=== PATIENT | female | born 1955 | race Caucasian/White ===

== ENCOUNTER → 2017-06-28 | Outpatient (CLI) | payer OTHER ==
[~2017-06-28] MED LIST: ASPIRIN ADULT L81 M5 PO; METFORMIN PO
[2017-06-28 08:28] LABS: BASOPHIL % 0.5 % (0-2); PLATELET COUNT 224 x10^3mcL (130-400)
[2017-06-28 08:38] LABS: CALCIUM 8.6 mg/dL (8.5-10.1); CARBON DIOXIDE 27.5 mmol/L (21-32); CHLORIDE SERUM 108 mmol/L (98-107); CHOLESTEROL 179 mg/dL (<200); CREATININE SERUM 0.6 mg/dL (0.6-1.0); GFR1 > 60 mL/min; GLUCOSE SERUM 144 mg/dL (74-106); POTASSIUM SERUM 4.1 mmol/L (3.5-5.1); SODIUM SERUM 143 mmol/L (136-145); TRIGLYCERIDES 55 mg/dL (<150)
[2017-06-28 08:42] LABS: CHOLESTEROL/HDL RATIO 2.8; HDL CHOLESTEROL 63 mg/dL (40-60)
[2017-06-28 08:58] LABS: RED CELL DISTRIBUTION WIDTH 14.7 % (11.5-14.5)
[2017-06-28 09:17] LABS: T3 TOTAL 0.93 ng/mL
[2017-06-28 10:13] LABS: FREE T4 1.04 ng/dL (0.76-1.46); FREE THYROXINE INDEX 2.1 ug/dL (1.4-4.5); T4(THYROXINE) 5.9 ug/dL (4.7-13.3)
== END | disposition home or self-care (01) ==
LOC: LB 07:49
PROVIDERS: Internal Medicine
DX: E11.9 Type 2 diabetes mellitus without complications (principal)
CPT/HCPCS: 84439

== ENCOUNTER 2018-04-19 18:45 | Inpatient (IN) | payer OTHER ==
[~2018-04-19] VITALS: Ht 147.3 cm; Wt 66.2 kg
[2018-04-19 20:56] LABS: BASOPHIL % 0.4 % (0-2); PLATELET COUNT 246 x10^3mcL (130-400)
[2018-04-19 20:57] LABS: RED CELL DISTRIBUTION WIDTH 15.2 % (11.5-14.5)
[2018-04-19 21:05] LABS: CALCIUM 8.7 mg/dL (8.5-10.1); CARBON DIOXIDE 24.6 mmol/L (21-32); CHLORIDE SERUM 105 mmol/L (98-107); CREATININE SERUM 0.8 mg/dL (0.6-1.0); GFR1 > 60 mL/min; GLUCOSE SERUM 195 mg/dL (74-106); POTASSIUM SERUM 3.6 mmol/L (3.5-5.1); SODIUM SERUM 143 mmol/L (136-145)
[2018-04-19] MEDS ORDERED: METFORMIN ER500 M1 PO (21:09)
[2018-04-19 21:11] LABS: ALBUMIN 3.4 g/dL (3.4-5.0); ALKALINE PHOSPHATASE 139 U/L (46-116); ALT/SGPT 35 U/L (14-59); AST/SGOT 24 U/L (15-37); BILIRUBIN TOTAL 0.45 mg/dL (0.20-1.00); C REACTIVE PROTEIN 0.5 mg/dL (<=0.9); TOTAL PROTEIN, SERUM 6.9 g/dL (6.4-8.2)
[2018-04-19 21:42] LABS: ERYTHROCYTE SED RATE 24 mm/hr (0-30)
[2018-04-19 21:48] VITALS: BP 134/66
[2018-04-19 21:51] LABS: CHOLESTEROL/HDL RATIO 3.4; MAGNESIUM 1.9 mg/dL (1.8-2.4); PHOSPHOROUS 3.4 mg/dL (2.5-4.9)
[2018-04-19 21:56] VITALS: Ht 147.3 cm; Wt 66.2 kg
[2018-04-19 22:01] LABS: T3 TOTAL 0.96 ng/mL
[2018-04-19 22:19] LABS: FREE T4 0.86 ng/dL (0.76-1.46); FREE THYROXINE INDEX 2.5 ug/dL (1.4-4.5); T4(THYROXINE) 6.3 ug/dL (4.7-13.3)
[2018-04-20 00:51] LABS: UA SPECIFIC GRAVITY >=1.030 (1.005-1.035); microscopic required? YES; urine erythrocyte NEGATIVE (NEGATIVE)
[2018-04-20 01:05] LABS: AMPHETAMINE QUAL UR NONE DETECTED (See below)
[2018-04-20 05:54] VITALS: BP 117/60
[2018-04-20 10:12] VITALS: BP 123/57
[2018-04-20 12:53] VITALS: BP 130/56
[2018-04-20 13:14] VITALS: BP 130/56
[2018-04-20] MEDS ORDERED: APAP/HYDROCODON1 T13 PO (14:51)
[2018-04-20] MEDS ORDERED: LEVAQUIN750 MG PO (14:54)
[2018-04-20] MEDS ORDERED: LAC PO (14:56)
[2018-04-20 15:32] VITALS: BP 130/56
== END 2018-04-20 17:58 | disposition home or self-care (01) | DRG 562 ==
LOC: ED 18:45 → DU 20:33
PROVIDERS: Internal Medicine; Specialist
DX: S83.206A Unspecified tear of unspecified meniscus, current injury, right knee, initial encounter (principal); N17.0 Acute kidney failure with tubular necrosis; E46 Unspecified protein-calorie malnutrition; K80.10 Calculus of gallbladder with chronic cholecystitis without obstruction; E11.65 Type 2 diabetes mellitus with hyperglycemia; S83.91XA Sprain of unspecified site of right knee, initial encounter; E78.5 Hyperlipidemia, unspecified; M17.11 Unilateral primary osteoarthritis, right knee; R80.9 Proteinuria, unspecified; W01.0XXA Fall on same level from slipping, tripping and stumbling without subsequent striking against object, initial encounter; Y99.8 Other external cause status; Y92.89 Other specified places as the place of occurrence of the external cause; Y93.89 Activity, other specified; Z68.33 Body mass index [BMI] 33.0-33.9, adult; Z79.84 Long term (current) use of oral hypoglycemic drugs; Z90.710 Acquired absence of both cervix and uterus; Z90.49 Acquired absence of other specified parts of digestive tract
CPT/HCPCS: 83880; 84439; 97116-GP; J0696; J1885; J3490; J7030; Q0092

== ENCOUNTER → 2018-05-04 | Outpatient (CLI) | payer OTHER ==
[~2018-05-04] MED LIST changes: +APAP/HYDROCODON1 T13 PO; +LAC PO; +LEVAQUIN750 MG PO; +METFORMIN ER500 M1 PO
== END | disposition home or self-care (01) ==
LOC: MI 12:13
PROC: BQ37YZZ Magnetic Resonance Imaging (MRI) of Right Knee using Other Contrast (ICD-10-PCS; principal; 2018-05-04)
DX: S89.91XA Unspecified injury of right lower leg, initial encounter (principal); S82.001A Unspecified fracture of right patella, initial encounter for closed fracture; X58.XXXA Exposure to other specified factors, initial encounter; Y92.9 Unspecified place or not applicable
CPT/HCPCS: A9577

== ENCOUNTER → 2018-05-09 | Outpatient (CLI) | payer OTHER | END | disposition home or self-care (01) | LOC: RD 09:24 | DX: S76.101D Unspecified injury of right quadriceps muscle, fascia and tendon, subsequent encounter (principal); X58.XXXD Exposure to other specified factors, subsequent encounter ==

== ENCOUNTER → 2018-06-05 | Outpatient (CLI) | payer OTHER | END | disposition home or self-care (01) | LOC: RD 11:45 | DX: S82.001D Unspecified fracture of right patella, subsequent encounter for closed fracture with routine healing (principal); X58.XXXD Exposure to other specified factors, subsequent encounter ==

== ENCOUNTER 2018-07-17 10:59 | Inpatient (IN) | payer OTHER ==
[~2018-07-17] VITALS: Ht 149.9 cm; Wt 64.4 kg
[2018-07-17 11:13] VITALS: Ht 149.9 cm; Wt 64.4 kg
[2018-07-17 12:30] LABS: BASOPHIL % 0.1 % (0-2); PLATELET COUNT 219 x10^3mcL (130-400); RED CELL DISTRIBUTION WIDTH 14.8 % (11.5-14.5)
[2018-07-17 12:40] LABS: CALCIUM 8.8 mg/dL (8.5-10.1); CARBON DIOXIDE 25.8 mmol/L (21-32); CHLORIDE SERUM 105 mmol/L (98-107); CREATININE SERUM 0.8 mg/dL (0.6-1.0); GFR1 > 60 mL/min; GLUCOSE SERUM 123 mg/dL (74-106); POTASSIUM SERUM 3.9 mmol/L (3.5-5.1); SODIUM SERUM 141 mmol/L (136-145)
[2018-07-17 12:44] LABS: ALBUMIN 3.6 g/dL (3.4-5.0); ALKALINE PHOSPHATASE 120 U/L (46-116); ALT/SGPT 40 U/L (14-59); AST/SGOT 23 U/L (15-37); BILIRUBIN TOTAL 0.86 mg/dL (0.20-1.00); TOTAL PROTEIN, SERUM 7.7 g/dL (6.4-8.2)
[2018-07-17] MEDS ORDERED: METFORMIN HCL500 M4 PO (13:02)
[2018-07-17 13:06] LABS: microscopic required? NO
[2018-07-17 13:21] LABS: urine erythrocyte NEGATIVE (NEGATIVE)
[2018-07-17 13:26] LABS: PHOSPHOROUS 3.6 mg/dL (2.5-4.9)
[2018-07-17 13:33] LABS: T3 TOTAL 0.8 ng/mL
[2018-07-17 13:52] LABS: FREE T4 0.99 ng/dL (0.76-1.46); T4(THYROXINE) 5.8 ug/dL (4.7-13.3)
[2018-07-17 14:22] VITALS: BP 126/62
[2018-07-17 16:20] VITALS: BP 119/48
[2018-07-17 21:35] VITALS: BP 104/45
[2018-07-18 05:05] VITALS: BP 138/62
[2018-07-18 05:44] LABS: BASOPHIL % 0.2 % (0-2); PLATELET COUNT 206 x10^3mcL (130-400)
[2018-07-18 05:59] LABS: CALCIUM 8.3 mg/dL (8.5-10.1); CARBON DIOXIDE 25.5 mmol/L (21-32); CHLORIDE SERUM 105 mmol/L (98-107); CREATININE SERUM 0.6 mg/dL (0.6-1.0); GFR1 > 60 mL/min; GLUCOSE SERUM 159 mg/dL (74-106); SODIUM SERUM 137 mmol/L (136-145)
[2018-07-18 06:31] LABS: RED CELL DISTRIBUTION WIDTH 14.9 % (11.5-14.5)
[2018-07-18 09:28] VITALS: BP 114/70
[2018-07-18 17:55] VITALS: BP 131/51
[2018-07-18 20:02] VITALS: BP 109/49
[2018-07-19 05:43] VITALS: BP 120/61
[2018-07-19 06:16] LABS: CALCIUM 8.8 mg/dL (8.5-10.1); CARBON DIOXIDE 26.4 mmol/L (21-32); CHLORIDE SERUM 108 mmol/L (98-107); CREATININE SERUM 0.7 mg/dL (0.6-1.0); GFR1 > 60 mL/min; GLUCOSE SERUM 129 mg/dL (74-106); POTASSIUM SERUM 4.1 mmol/L (3.5-5.1); SODIUM SERUM 141 mmol/L (136-145)
[2018-07-19 06:23] LABS: BASOPHIL % 0.5 % (0-2); PLATELET COUNT 194 x10^3mcL (130-400)
[2018-07-19 06:55] LABS: RED CELL DISTRIBUTION WIDTH 15.1 % (11.5-14.5)
[2018-07-19 09:05] VITALS: BP 119/60
[2018-07-19 16:28] VITALS: BP 131/63
[2018-07-19 20:59] VITALS: BP 140/55
[2018-07-20 05:54] VITALS: BP 125/59
[2018-07-20 06:21] LABS: BASOPHIL % 0.7 % (0-2); PLATELET COUNT 203 x10^3mcL (130-400); RED CELL DISTRIBUTION WIDTH 14.5 % (11.5-14.5)
[2018-07-20 06:32] LABS: CALCIUM 8.7 mg/dL (8.5-10.1); CARBON DIOXIDE 25.7 mmol/L (21-32); CHLORIDE SERUM 107 mmol/L (98-107); CREATININE SERUM 0.7 mg/dL (0.6-1.0); GFR1 > 60 mL/min; GLUCOSE SERUM 108 mg/dL (74-106); POTASSIUM SERUM 4.2 mmol/L (3.5-5.1); SODIUM SERUM 140 mmol/L (136-145)
[2018-07-20 09:23] VITALS: BP 119/56
[2018-07-20] MEDS ORDERED: NOR10T PO (11:27)
[2018-07-20 12:23] VITALS: BP 119/56
== END 2018-07-20 14:38 | disposition home health service (06) | DRG 563 ==
LOC: ED 10:59 → MU 12:46
PROVIDERS: Emergency Medicine; Internal Medicine
PROC: 0S9C3ZZ Drainage of Right Knee Joint, Percutaneous Approach (ICD-10-PCS; principal; 2018-07-17)
DX: S82.001A Unspecified fracture of right patella, initial encounter for closed fracture (principal); M25.061 Hemarthrosis, right knee; M25.461 Effusion, right knee; E11.65 Type 2 diabetes mellitus with hyperglycemia; W18.39XA Other fall on same level, initial encounter; R26.2 Difficulty in walking, not elsewhere classified; E78.5 Hyperlipidemia, unspecified; Z79.84 Long term (current) use of oral hypoglycemic drugs; Z88.0 Allergy status to penicillin; Z88.2 Allergy status to sulfonamides; Y93.89 Activity, other specified; Y92.89 Other specified places as the place of occurrence of the external cause; Y99.8 Other external cause status; Z90.710 Acquired absence of both cervix and uterus; Z83.3 Family history of diabetes mellitus; Z82.49 Family history of ischemic heart disease and other diseases of the circulatory system
CPT/HCPCS: 82962; 83880; 84439; 90658; 97110-GP; 97116-GP; 97530-GP; J1644; J1885; J2270

== ENCOUNTER 2020-12-22 20:29 | Emergency (ER) | payer OTHER, MEDICAID ==
[~2020-12-22] VITALS: Ht 147.3 cm; Wt 65.8 kg
[~2020-12-22 20:29] MED LIST changes: +METFORMIN HCL500 M4 PO; +NOR10T PO
[2020-12-22 20:42] VITALS: Ht 147.3 cm; Wt 65.8 kg
[2020-12-22] MEDS ORDERED: NAPROSYN500 MG PO (22:58)
[2020-12-22 23:15] VITALS: BP 130/68
== END 2020-12-22 23:15 | disposition home or self-care (01) ==
LOC: ED 20:29
DX: S93.602A Unspecified sprain of left foot, initial encounter (principal); I10 Essential (primary) hypertension; E11.9 Type 2 diabetes mellitus without complications; Z88.0 Allergy status to penicillin; Z88.2 Allergy status to sulfonamides; Z90.710 Acquired absence of both cervix and uterus; X50.1XXA Overexertion from prolonged static or awkward postures, initial encounter; Y93.89 Activity, other specified; Y92.89 Other specified places as the place of occurrence of the external cause; Y99.8 Other external cause status
CPT/HCPCS: J1885